=== PATIENT | male | born 1990 | race Caucasian/White ===

== ENCOUNTER 2021-09-19 01:53 | Emergency (ER) | payer SELFPAY ==
[~2021-09-19] VITALS: Ht 185.4 cm; Wt 77.0 kg
--- NOTE | 2021-09-19 02:30 | PHYS DOC ---
Past History Past Medical History Bilateral labium repairs General Adult EDM: Chief Complaint: GENERALIZED BODY ACHES HPI: HPI: ".. My neck is killing me... I can't get to sleep.... My neck in spams.. I can't sleep like this.. I can't work ... like this...".." I am aching all over.. ".." I woke up after falling asleep on the couch... With a severe neck spasm" Patient is a 31 year old male who presents with above hx and complaints cervical and trapezius spasms. Pt. also complaints subjective fever, malaise, arthralgia, myalgia. Patient did not get flu vaccination. Patient did not get COVID vaccination. Patient does smoke tobacco. Patient denies any drug use. Patient denies any alcohol use. Patient denies any recent travel. Patient denies any specific trauma. Patient denies any specific ill contacts. 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 This requires frequent turning of his neck.. Past medical history of bilateral labrum repairs in his shoulders. Patient denies any history immunosuppression. Review of Systems: Review of Systems: Constitutional: Complains of subjective fevers, arthralgia, myalgia and malaise Eyes: Denies change in visual acuity HENT: Denies nasal congestion or sore throat Respiratory: Denies cough or shortness of breath Cardiovascular: Denies chest pain or edema GI: Denies abdominal pain, nausea, vomiting, bloody stools or diarrhea : Denies dysuria Musculoskeletal: Complains of trapezius and cervical neck spasms Integument: Denies rash Neurologic: Denies headache, focal weakness or sensory changes Endocrine: Denies polyuria or polydipsia Lymphatic: Denies swollen glands Psychiatric: Denies depression or anxiety Family History: Family History: Noncontributory to presentation Current Medications: Current Meds: See nursing for home meds Allergies: Allergies: Allergies Coded Allergies Type Severity Reaction Last Updated Verified Penicillins Allergy Unknown 09/19/21 Yes Physical Exam: PE: Constitutional: Moderate acute distress, non-toxic appearance. [] HENT: Normocephalic, atraumatic, bilateral external ears normal, oropharynx moist, no oral exudates, nose mild rhinorrhea that is clear Eyes: PERRLA, EOMI, conjunctiva normal, no discharge. [] Neck: Decreased range of motion due to next muscle spasms and, tenderness, supple, no stridor. [] Cardiovascular:Heart rate regular rhythm, no murmur [] Lungs & Thorax: Bilateral breath sounds equal apex with scattered wheezes auscultation [] Abdomen: Bowel sounds normal, soft, no tenderness, no masses, no pulsatile masses. [] Skin: Warm, dry, no erythema, no rash. Tattoos Back: Upper neck and mid back tenderness,, muscle spasms, no CVA tenderness. [] Extremities: No tenderness, no cyanosis, no clubbing, ROM intact, no edema. [] Bilateral surgery scars and shoulders Neurologic: Alert and oriented X 3, normal motor function, normal sensory function, no focal deficits noted. DTRs +2 patella and brachial. Patient ambulatory without problems. [id number]. Taxation Inspector equal. Psychologic: Affect, anxious, judgement normal, mood normal. [] Current Patient Data: Vital Signs: Vital Signs Date Time Temp Pulse Resp B/P (MAP) Pulse Ox O2 Delivery O2 Flow Rate FiO2 09/19/21 02:10 99.2 103 18 123/64 (83) 98 Room Air EKG: EKG: [] Radiology/Procedures: Radiology/Procedures: []Signed PATIENT: PAULINO RUST ACCOUNT: [id number] : 1990 LOCATION: ER AGE: 31 SEX: M EXAM STATUS: REG ER ORD. PHYSICIAN: MIKE MARQUEZ MD REASON: velvet costello PROCEDURE: CT CERVICAL SPINE WO CONTRAST PQRS Compliance Statement: One or more of the following individualized dose reduction techniques were utilized for this examination: 1. Automated exposure control 2. Adjustment of the mA and/or kV according to patient size 3. Use of iterative reconstruction technique CT cervical spine without contrast 09/19/2021 3:03 AM INDICATION: Torticollis, pain COMPARISON: None available TECHNIQUE: Multiple axial CT images of the cervical spine were obtained without intravenous contrast. Coronal and sagittal reformats are provided. FINDINGS: Alignment of the cervical spine is normal. Skull base is intact. Craniocervical junction is normal in appearance. Atlantoaxial articulation is normal. Vertebral body heights are maintained without evidence for acute fracture. At C5-C6 there is a posterior disc osteophyte complex with mild facet arthropathy and mild uncovertebral joint disease resulting in mild left neuroforaminal stenosis. Mild osseous spinal canal stenosis. At C6-C7, there is mild disc bulge asymmetric to the left. No significant facet arthropathy or uncovertebral joint disease. Mild left neuroforaminal stenosis. Mild spinal canal stenosis. Mild mucosal thickening of the right maxillary sinus. There is no prevertebral soft tissue swelling. Thyroid gland is normal in appearance. Visualized portions of the lung apices are normal without evidence for suspicious pulmonary nodule or infiltrate. IMPRESSION: 1. No acute fracture or malalignment of the cervical spine. Mild cervical spondylosis centered at C5-C6 and C6-C7. Electronically signed by: Chito Calix MD (09/19/2021 3:26 AM) [facility] DICTATED AND SIGNED BY: CHITO CALIX MD DATE: 09/19/21317 CC: MIKE MARQUEZ MD; PCP,NO ~ Heart Score: C/O Chest Pain: N/A Risk Factors: Risk Factors: DM, Current or recent (<one month) smoker, HTN, HLP, family history of CAD, obesity. Risk Scores: Score 0 - 3: 2.5% MACE over next 6 weeks - Discharge Home Score 4 - 6: 20.3% MACE over next 6 weeks - Admit for Clinical Observation Score 7 - 10: 72.7% MACE over next 6 weeks - Early Invasive Strategies Course & Med Decision Making: Course & Med Decision Making Pertinent Labs and Imaging studies reviewed. (See chart for details) Pt. reports marked improvement with the torticollis. And muscle spasms.. Patient requesting discharge. Declined further labs or evaluation at this time. Patient follow-up primary care. Patient take Tylenol and ibuprofen for discomfort. For muscle spasm may take Flexeril 10 mg up to 3 times a day. Patient warned this may be sedating. Patient encouraged to stop smoking. Pat ient advised may need further evaluation of neck spasms with MRI but no obvious fracture at this time. Impression: 1. Torticollis 2. Viral syndrome [] Dragon Disclaimer: Leroy Disclaimer: This electronic medical record was generated, in whole or in part, using a voice recognition dictation system. Departure Departure: Referrals: PCP,NO (PCP) Scripts Cyclobenzaprine Hcl (CYCLOBENZAPRINE HCL) 10 Mg Tablet 10 MG PO TID PRN PRN for spasms, #30 TAB Prov: MIKE MARQUEZ MD 09/19/21 Leroy Disclaimer This chart was dictated in whole or in part using Voice Recognition software in a busy, high-work load, and often noisy Emergency Department environment. It may contain unintended and wholly unrecognized errors or omissions. Dragon Disclaimer This chart was dictated in whole or in part using Voice Recognition software in a busy, high-work load, and often noisy Emergency Department environment. It may contain unintended and wholly unrecognized errors or omissions. MIKE MARQUEZ MD September 19, 2021 02:30
[2021-09-19] MEDS ORDERED: ORPHENADRINE CITRATE 60 MG/2 ML VIAL. IM ONE (03:00)
[2021-09-19] MEDS ORDERED: KETOROLAC 60 MG/2 ML VIAL. IM ONE (03:00)
--- NOTE | 2021-09-19 03:28 | RAD ---
PQRS Compliance Statement: One or more of the following individualized dose reduction techniques were utilized for this examinat ion: 1. Automated exposure control 2. Adjustment of the mA and/or kV according to patient size 3. Use of iterative reconstruction technique CT cervical spine without contrast 09/19/2021 3:03 AM INDICATION: Torticollis, pain COMPARISON: None available TECHNIQUE: Multiple axial CT images of the cervical spine were obtained without intravenous contrast. Coronal and sagittal reformats are provided. FINDINGS: Alignment of the cervical spine is normal. Skull base is intact. Craniocervical junction is normal in appearance. Atlantoaxial articulation is normal. Vertebral body heights are maintained without evidence for acute fracture. At C5-C6 there is a posterior disc osteophyte complex with mild facet arthropathy and mild uncoverteb ral joint disease resulting in mild left neuroforaminal stenosis. Mild osseous spinal canal stenosis. At C6-C7, there is mild disc bulge asymmetric to the left. No significant facet arthropathy or uncove rtebral joint disease. Mild left neuroforaminal stenosis. Mild spinal canal stenosis. Mild mucosal thickening of the right maxillary sinus. There is no prevertebral soft tissue swelling. Thyroid gland is normal in appearance. Visualized portions of the lung apices are normal without evid ence for suspicious pulmonary nodule or infiltrate. IMPRESSION: 1. No acute fracture or malalignment of the cervical spine. Mild cervical spondylosis centered at C5- C6 and C6-C7. Electronically signed by: Zora Miller MD (09/19/2021 3:26 AM) [facility]
[2021-09-19 03:45] LABS: INFLUENZA A PATIENT NEGATIVE (NEGATIVE); INFLUENZA B PATIENT NEGATIVE (NEGATIVE)
[2021-09-19] MEDS ORDERED: CYCL10TA19 PO (03:58)
[2021-09-19 04:07] VITALS: BP 126/72
== END 2021-09-19 04:10 | disposition home or self-care (01) ==
LOC: ER 01:53
DX: M43.6 Torticollis (principal); B34.9 Viral infection, unspecified; Z20.822 Contact with and (suspected) exposure to COVID-19
CPT/HCPCS: 72125; 87428; 96372; 99284; J1885; J2360